=== PATIENT | female | born 1955 | race Caucasian/White ===

== ENCOUNTER 2023-08-09 20:11 | Emergency (ER) | payer MEDICARE, OTHER ==
[2023-08-09 21:28] LABS: AMPHETAMINES SCREEN, URINE NEGATIVE (NEGATIVE); BARBITURATE SCREEN,URINE NEGATIVE (NEGATIVE); BENZODIAZEPINES SCREEN,URINE NEGATIVE (NEGATIVE); METHADONE SCREEN, URINE NEGATIVE (NEGATIVE); METHAMPHETAMINES SCREEN, URINE NEGATIVE (NEGATIVE); OXYCODONE SCREEN,URINE NEGATIVE (NEGATIVE); PROPOXYPHENE SCREEN,URINE NEGATIVE (NEGATIVE); THC SCREEN,URINE 50 NG/ML PRESUMPTIVE POSITIVE (NEGATIVE)
[2023-08-09] MEDS ORDERED: Haloperidol Lactate 5 MG/ML SDV IM ONE ×2 (21:37→22:05)
[2023-08-09] MEDS ORDERED: LORazepam 2 MG/ML SDV IM ONE (21:37)
[2023-08-09] MEDS ORDERED: diphenhydrAMINE 50 MG/ML SDV IM ONE (21:37)
== END 2023-08-10 14:17 | disposition home or self-care (01) ==
LOC: JP.ED 20:11
DX: F10.10 Alcohol abuse, uncomplicated (principal); F32.A Depression, unspecified; R45.851 Suicidal ideations
CPT/HCPCS: 80305; 96372; 99285; J1200; J1630; J2060; 99284

== ENCOUNTER 2025-02-10 06:48 | Day surgery (SDC) | payer MEDICARE, BC ==
[2025-02-10] MEDS ORDERED: Midazolam 1 MG/ML 2 ML SDV ONE (07:11)
[2025-02-10] MEDS ORDERED: fentaNYL 50 MCG/ML SDV ONE (07:11)
[2025-02-10] MEDS ORDERED: Propofol 200 MG/20 ML SDV ONE (07:11)
[2025-02-10] MEDS: Lactated Ringers 1,000 ML IV SCH (07:27)
== END 2025-02-10 09:28 | disposition home or self-care (01) ==
LOC: JP.SDS 06:48
PROVIDERS: ATTEND Surgery
DX: Z12.11 Encounter for screening for malignant neoplasm of colon (principal); E78.5 Hyperlipidemia, unspecified; I12.9 Hypertensive chronic kidney disease with stage 1 through stage 4 chronic kidney disease, or unspecified chronic kidney disease; N18.30 Chronic kidney disease, stage 3 unspecified; F17.200 Nicotine dependence, unspecified, uncomplicated
CPT/HCPCS: 00812; G0121; J2250; J2704; J3010; J7120